=== PATIENT | female | born 1985 | race Caucasian/White ===

== ENCOUNTER 2020-09-03 08:05 | Emergency (ER) | payer MEDICAID ==
[~2020-09-03] VITALS: Ht 154.9 cm; Wt 59.1 kg
[~2020-09-03 08:05] MED LIST: CYCL10TA26 PO; DIAZ10TA4 PO; DIPH25CA83 PO; IBUP-1985 PO; IBUP-1986 PO; LEVE500T PO; OMEP20CA15 PO
[2020-09-03 08:10] VITALS: BP 118/78
[2020-09-03] MEDS ORDERED: ketorolac trometh. 30mg/ml inj. IM ONE (08:20)
[2020-09-03] MEDS ORDERED: ondansetron 4mg rapidly disintigrating tab PO ONE (08:20)
[2020-09-03] MEDS ORDERED: HYDROcodone/acetaminophen 5mg/325mg tablet PO ONE (08:20)
[2020-09-03] MEDS ORDERED: HYDR-3965 PO (09:19)
== END 2020-09-03 09:31 | disposition home or self-care (01) ==
LOC: ER 08:05
DX: S30.0XXA Contusion of lower back and pelvis, initial encounter (principal); M54.5 Low back pain; K21.9 Gastro-esophageal reflux disease without esophagitis; F17.200 Nicotine dependence, unspecified, uncomplicated; Z87.728 Personal history of other specified (corrected) congenital malformations of nervous system and sense organs; Z87.440 Personal history of urinary (tract) infections; Z87.442 Personal history of urinary calculi; Z98.890 Other specified postprocedural states; Z72.89 Other problems related to lifestyle; Z88.1 Allergy status to other antibiotic agents; Z88.6 Allergy status to analgesic agent; Z88.8 Allergy status to other drugs, medicaments and biological substances; Z79.899 Other long term (current) drug therapy; X58.XXXA Exposure to other specified factors, initial encounter; Y93.89 Activity, other specified; Y92.89 Other specified places as the place of occurrence of the external cause; Y99.8 Other external cause status
CPT/HCPCS: 72131; 96372; 99284; J1885